=== PATIENT | male | born 1960 | race Two or more races ===

== ENCOUNTER 2024-11-30 07:23 | Day surgery (SDC) | payer OTHER ==
[2024-11-24 10:16] VITALS: BP 145/80
[2024-11-24 10:26] LABS: URINE APPEARANCE Clear; URINE BILIRRUBIN Negative (NEGATIVE); URINE BLOOD Negative; URINE COLOR Yellow; URINE GLUCOSE Negative (NEGATIVE); URINE KETONE Negative (NEGATIVE); URINE LEUKOCYTE Negative; URINE NITRATE Negative; URINE PROTEIN Negative (NEGATIVE); URINE UROBILINOGEN 0.2 E.U./dl
[2024-11-24 10:27] LABS: BASO % 0.8 % (0.1-1.2); EOS # 0.26 (0.04-0.54); EOS % 4.1 % (0.7-7.0); LYMPH # 2.93 (1.18-3.74); LYMPH % 46.0 % (19.3-53.1); MEAN PLATELET VOLUME 9.90 fl (9.4-12.4); MONO # 0.72 (0.24-0.82); MONO % 11.3 % (4.7-12.5); NEUT # 2.40 (1.56-6.13); NEUT % 37.6 % (34.0-71.1); RED CELL DISTRIBUTION WIDTH 13.3 % (11.6-14.4)
[2024-11-24 10:28] LABS: URINE WBC 2.5 uL (0.0-23.2)
[2024-11-24 10:33] LABS: URINE BACTERIA 3.5 uL (0.0-1933); URINE CAST 0.00 uL (0.0-1.40); URINE EPITHELIAL CELLS 0.9 uL (0.0-38.8); URINE RBC 1.4 uL (0.0-20.8)
[2024-11-24 10:50] LABS: INR 1.03
[2024-11-24 11:07] LABS: ALT/SGPT 43.0 U/L (12-78); AST/SGOT 17.0 U/L (15-37); BILIRUBIN TOTAL 0.78 mg/dL (0.3-1.2); BUN CREA RATIO 21.0 (7.0-25.0); CREATININE SERUM 0.67 mg/dL (0.70-1.30); GFR 120.19; GLOBULINA 3.0 G/DL (2.4-3.5); GLUCOSE FASTING 101.0 mg/dL (65-100); OSMOLALITY SERUM 284.0 MOSM/KG (275-295)
[~2024-11-30 07:23] MED LIST: ECOTRIN81 MG PO; FENOFIBRATE54 MG PO; LIPITOR40 M1 PO; LISINOPRIL20 MG PO; METROPOLOL; [UNRECOGNIZED DRUG - OTHER]; [UNRECOGNIZED DRUG - OTHER]
[2024-11-30] MEDS ORDERED: TRAMADOL HCL50 MG PO (11:02)
[2024-11-30] MEDS ORDERED: TYLENOL ARTHRI650 MG PO (11:02)
[2024-11-30] MEDS ORDERED: KETO10TA2 PO (11:02)
[2024-11-30] MEDS ORDERED: MIRALAX17 GM PO (11:02)
[2024-11-30] MEDS ORDERED: CEFAZOLIN SODIUM 1,000 MG VIAL IV ONE (12:00)
[2024-11-30] MEDS ORDERED: BUPIVACAINE HCL 30 ML VIAL IJ ONE (12:00)
[2024-11-30] MEDS ORDERED: LIDOCAINE HCL 1%/EPINEPHRINE 20ML VIAL IJ ONE (12:00)
== END 2024-11-30 20:05 | disposition home or self-care (01) ==
LOC: CIR.AMB 07:23
PROVIDERS: ATTEND Surgery
DX: K40.90 Unilateral inguinal hernia, without obstruction or gangrene, not specified as recurrent (principal); K42.0 Umbilical hernia with obstruction, without gangrene
CPT/HCPCS: 49650; 49592; C1781